=== PATIENT | female | born 1985 | race Caucasian/White ===

== ENCOUNTER → 2019-08-18 | Outpatient (REF) | payer OTHER | LOC: M LAB REF 16:25 | PROVIDERS: ATTEND Obstetrics & Gynecology | DX: N95.1 Menopausal and female climacteric states (principal); R30.0 Dysuria ==

== ENCOUNTER 2025-01-15 10:02 | Emergency (ER) | payer BC, OTHER ==
[~2025-01-15] VITALS: Ht 152.4 cm; Wt 73.2 kg
[2025-01-15] MEDS ORDERED: SERT50TA29 (10:12)
[2025-01-15 10:38] LABS: BASO # 0.1 10^3/uL (0.0-0.2); BASO % 0.7 % (0.0-1.0); EOS # 0.1 10^3/uL (0.0-0.5); HEMATOCRIT 41.4 % (36.0-47.0); HEMOGLOBIN 14.1 g/dl (12.0-15.5); LYMPH # 1.8 10^3/uL (1.5-5.0); LYMPH % 23.9 % (24.0-44.0); MEAN CORPUSCULAR HEMOGLOBIN 31.4 pg (27.0-33.0); MEAN CORPUSCULAR HGB CONC 34.1 g/dl (32.0-36.5); MEAN CORPUSCULAR VOLUME 92.2 fl (80.0-96.0); MONO # 0.6 10^3/uL (0.0-0.8); MONO % 8.1 % (2.0-8.0); PLATELET COUNT, AUTOMATED 315 10^3/uL (150-450); RED BLOOD COUNT 4.49 10^6/uL (4.00-5.40); WHITE BLOOD COUNT 7.6 10^3/uL (4.0-10.0)
[2025-01-15 11:05] LABS: BLOOD UREA NITROGEN 14 MG/DL (9-23); CALCIUM LEVEL 9.1 MG/DL (8.5-10.1); CARBON DIOXIDE LEVEL 28 MMOL/L (20-31); CHLORIDE LEVEL 105 MMOL/L (98-107); GLOMERULAR FILTRATION RATE > 60.0 (>60); GLUCOSE, FASTING 91 MG/DL (60-100); POTASSIUM SERUM 4.2 MMOL/L (3.5-5.1); SODIUM LEVEL 141 MMOL/L (136-145)
[2025-01-15 11:08] LABS: HCG, SERUM QUALITATIVE NEGATIVE (NEGATIVE)
[2025-01-15] MEDS: KETOROLAC 30 MG/ML 1ML VIAL IV ONE (11:13)
[2025-01-15] MEDS: ONDANSETRON 4MG 2ML VIAL IV ONE (11:13)
[2025-01-15] MEDS ORDERED: ISOVUE-370 76% 100ML VIAL As Ordered ONE (11:32)
[2025-01-15 12:31] LABS: KETONE, URINE AUTO RFX NEGATIVE (NEGATIVE); LEUKOCYTE ESTERASE UR AUTO RFX NEGATIVE (NEGATIVE); NITRITE, URINE AUTO RFX NEGATIVE (NEGATIVE); RBC, URINE AUTO RFX 0 /HPF (0-3); SQUAM EPITHELIAL CELL UR AURFX 3 /HPF (0-6); WBC, URINE AUTO RFX 0 /HPF (0-3)
[2025-01-15] MEDS: cefTRIAXone SOD 1 GM in DEXTROSE 5% (D5W) ADV/MINI-BAG 50 ML IV ONE (12:43)
[2025-01-15 13:29] VITALS: BP 94/54; TEMP 97; O2SAT 100
[2025-01-15] MEDS ORDERED: AMOX500T2 PO (13:35)
== END 2025-01-15 13:43 | disposition home or self-care (01) ==
LOC: M ED 10:02
DX: K35.80 Unspecified acute appendicitis (principal); F41.9 Anxiety disorder, unspecified; F32.A Depression, unspecified; Z88.8 Allergy status to other drugs, medicaments and biological substances; Z79.2 Long term (current) use of antibiotics; Z79.899 Other long term (current) drug therapy
CPT/HCPCS: 74177; 80048; 81001; 84703; 85025; 96365; 96375; 99284; J0696; J1885; J2405; Q9967

== ENCOUNTER 2025-08-10 13:39 | Emergency (ER) | payer BC ==
[~2025-08-10] VITALS: Ht 152.4 cm; Wt 71.6 kg
[~2025-08-10 13:39] MED LIST: AMOX500T2 PO; SERT50TA29
[2025-08-10 16:03] LABS: BASO # 0.1 10^3/uL (0.0-0.2); BASO % 0.5 % (0.0-1.0); EOS # 0.1 10^3/uL (0.0-0.5); EOS % 1.5 % (0.0-3.0); LYMPH # 2.5 10^3/uL (1.5-5.0); LYMPH % 26.2 % (24.0-44.0); MONO # 0.7 10^3/uL (0.0-0.8); MONO % 6.8 % (2.0-8.0); NEUTROPHILS # 6.2 10^3/uL (1.5-8.5); NEUTROPHILS % 64.7 % (36.0-66.0); PLATELET COUNT, AUTOMATED 351 10^3/uL (150-450)
[2025-08-10 16:12] LABS: ERYTHROCYTE SEDIMENTATION RATE 21 mm/hr (0-20)
[2025-08-10] MEDS ORDERED: ISOVUE-370 76% 100 ML VIAL As Ordered ONE (16:13)
[2025-08-10 18:00] LABS: KETONE, URINE AUTO RFX NEGATIVE (NEGATIVE); NITRITE, URINE AUTO RFX NEGATIVE (NEGATIVE); RBC, URINE AUTO RFX 0 /HPF (0-3); SQUAM EPITHELIAL CELL UR AURFX 3 /HPF (0-6); WBC, URINE AUTO RFX 4 /HPF (0-3)
[2025-08-10 18:01] LABS: LEUKOCYTE ESTERASE UR AUTO RFX TRACE (NEGATIVE)
[2025-08-10] MEDS ORDERED: CIPR-249 PO (18:56)
[2025-08-10 19:01] VITALS: BP 117/66; TEMP 98.5; O2SAT 100
== END 2025-08-10 19:09 | disposition home or self-care (01) ==
LOC: M ED 13:39
DX: R10.9 Unspecified abdominal pain (principal); Z88.8 Allergy status to other drugs, medicaments and biological substances; Z79.2 Long term (current) use of antibiotics; Z79.899 Other long term (current) drug therapy
CPT/HCPCS: 36415; 74177; 80047; 81001; 83605; 85025; 85652; 86140; 87088; 87186; 99284; Q9967

== ENCOUNTER 2025-08-30 16:54 | Emergency (ER) | payer BC ==
[~2025-08-30] VITALS: Ht 152.4 cm; Wt 72.1 kg
[~2025-08-30 16:54] MED LIST changes: +CIPR-249 PO
[2025-08-30] MEDS ORDERED: FAMO40TA3 (17:00)
[2025-08-30] MEDS ORDERED: IBUP-1114 PO (17:01)
[2025-08-30 17:28] LABS: KETONE, URINE AUTO RFX NEGATIVE (NEGATIVE); LEUKOCYTE ESTERASE UR AUTO RFX NEGATIVE (NEGATIVE); NITRITE, URINE AUTO RFX NEGATIVE (NEGATIVE); RBC, URINE AUTO RFX 0 /HPF (0-3); SQUAM EPITHELIAL CELL UR AURFX 0 /HPF (0-6); WBC, URINE AUTO RFX 0 /HPF (0-3)
[2025-08-30 17:30] LABS: BASO # 0.1 10^3/uL (0.0-0.2); BASO % 0.5 % (0.0-1.0); EOS # 0.2 10^3/uL (0.0-0.5); EOS % 1.5 % (0.0-3.0); LYMPH # 2.8 10^3/uL (1.5-5.0); LYMPH % 26.4 % (24.0-44.0); MONO # 0.8 10^3/uL (0.0-0.8); MONO % 7.2 % (2.0-8.0); NEUTROPHILS # 6.7 10^3/uL (1.5-8.5); NEUTROPHILS % 64.0 % (36.0-66.0); PLATELET COUNT, AUTOMATED 339 10^3/uL (150-450)
[2025-08-30 17:46] LABS: HCG, SERUM QUALITATIVE NEGATIVE (NEGATIVE)
[2025-08-30 17:49] LABS: ALT/SGPT 25 U/L (7.0-40); AST/SGOT 19 U/L (<34)
[2025-08-30] MEDS: MORPHINE 4 MG/ML 1 ML VIAL IV ONE (18:56)
[2025-08-30] MEDS: ONDANSETRON 4MG 2ML VIAL IV ONE (18:56)
[2025-08-30] MEDS ORDERED: DICY-61 PO (21:26)
[2025-08-30] MEDS: DICYCLOMINE 10 MG CAP PO ONE (21:30)
[2025-08-30 21:31] VITALS: BP 109/61; TEMP 97.4; O2SAT 99
== END 2025-08-30 21:36 | disposition home or self-care (01) ==
LOC: M ED 16:54
DX: R10.9 Unspecified abdominal pain (principal); Z88.8 Allergy status to other drugs, medicaments and biological substances; F17.290 Nicotine dependence, other tobacco product, uncomplicated; Z79.899 Other long term (current) drug therapy; Z79.1 Long term (current) use of non-steroidal anti-inflammatories (NSAID)
CPT/HCPCS: 74176; 76705; 80047; 80076; 81001; 83690; 84703; 85025; 96374; 99284; J2405

== ENCOUNTER → 2025-11-16 | Outpatient (CLI) | payer BC ==
[~2025-11-16] MED LIST changes: +DICY-61 PO; +FAMO40TA3; +IBUP-1114 PO
== END ==
LOC: M RAD 07:55
PROVIDERS: ATTEND Nurse Practitioner Family
DX: R10.10 Upper abdominal pain, unspecified (principal); G24.9 Dystonia, unspecified
CPT/HCPCS: 78227; A9537